=== PATIENT | male | born 1975 ===

== ENCOUNTER 2016-08-21 21:56 | Emergency (ER) | payer SELFPAY ==
[2016-08-21 22:08] VITALS: O2SAT 97
[2016-08-21] MEDS ORDERED: Sodium Chloride 0.9% 1,000 ML IV ONE (22:25)
[2016-08-21] MEDS ORDERED: Sodium Chloride 0.9% 1,000 ML ONE (22:39)
[2016-08-21 22:49] LABS: BASO # 0.1 K/uL (0.0-0.2); BASO % 1.3 % (0.0-2.0); EOS # 0.4 K/uL (0.0-0.7); EOS % 4.9 % (0.0-4.0); HEMOGLOBIN 13.4 g/dL (12.0-18.0); LYMPH # 2.4 K/uL (1.0-4.3); LYMPH % 29.4 % (20.0-40.0); MEAN CELL VOLUME 81.8 fL (80.0-94.0); MEAN CORPUSCULAR HEMOGLOBIN 27.9 pg (27.0-31.0); MEAN CORPUSCULAR HGB CONC 34.1 g/dL (33.0-37.0); MEAN PLATELET VOLUME 8.5 fL (7.2-11.7); MONO # 0.7 K/uL (0.0-0.8); MONO % 9.1 % (0.0-10.0); NEUT # 4.5 K/uL (1.8-7.0); NEUT % 55.3 % (50.0-75.0); RBC 4.79 Mil/uL (4.40-5.90); RED CELL DISTRIBUTION WIDTH 14.1 % (11.5-14.5); WHITE BLOOD COUNT 8.1 K/uL (4.8-10.8)
[2016-08-21 22:52] LABS: SQUAMOUS EPITHIAL < 1 /hpf (0-5); URINE BACTERIA RARE (<OCC); URINE BILIRUBIN NEGATIVE (NEGATIVE); URINE BLOOD TRACE (NEGATIVE); URINE CLARITY Clear (Clear); URINE COLOR Yellow (YELLOW); URINE GLUCOSE (UA) NORMAL (Normal); URINE LEUKOCYTE ESTERASE NEG Leu/uL (Negative); URINE NITRATE NEGATIVE (NEGATIVE); URINE PROTEIN NEGATIVE (NEGATIVE); URINE UROBILINOGEN NORMAL mg/dL (0.2-1.0)
[2016-08-21 23:02] LABS: GFR AFRICAN-AMERICAN > 60; GFR NON-AFRICAN AMERICAN > 60
[2016-08-21 23:03] LABS: ALB/GLOB RATIO 1.1 (1.0-2.1); ALT/SGPT 25 U/L (21-72); AST/SGOT 25 U/L (17-59); BLOOD UREA NITROGEN 13 mg/dL (9-20); CALCIUM 8.8 mg/dl (8.6-10.4); LIPASE 70 U/L (23-300)
--- NOTE | 2016-08-21 23:04 | C.PDOC ---
History Of Present Illness A 41 y/o M c/o epigastric pain since this morning. Denies nausea, vomiting, fever, chills, chest pain, SOB, lightheadedness, diaphoresis, or any other complaints. Pt took antacids this morning without improvements. Time Seen by Provider: 08/21/16 22:22 Chief Complaint (Nursing): Abdominal Pain History Per: Patient History/Exam Limitations: no limitations Onset/Duration Of Symptoms: Hrs Current Symptoms Are (Timing): Still Present Severity: Mild Location Of Pain/Discomfort: Epigastric Radiation Of Pain To:: None Quality Of Discomfort: "Pain" Associated Symptoms: denies: Fever, Chills, Nausea, Vomiting Exacerbating Factors: None Alleviating Factors: None Recent travel outside of the [place]: No Additional History Per: Patient Past Medical History Reviewed: Historical Data, Nursing Documentation, Vital Signs Vital Signs: Last Vital Signs Temp 98.1 F 08/21/16 22:06 Pulse 60 08/21/16 22:06 Resp 16 08/21/16 22:06 BP 132/87 08/21/16 22:06 Pulse Ox 97 08/21/16 23:07 Family History: States: Unknown Family Hx - Social History Hx Alcohol Use: No Hx Substance Use: No - Immunization History Hx Tetanus Toxoid Vaccination: No Hx Influenza Vaccination: No Hx Pneumococcal Vaccination: No Review Of Systems Except As Marked, All Systems Reviewed And Found Negative. Constitutional: Negative for: Fever, Chills, Sweats Cardiovascular: Negative for: Chest Pain, Light Headedness Respiratory: Negative for: Shortness of Breath Gastrointestinal: Positive for: Abdominal Pain (Epigastric). Negative for: Nausea, Vomiting Physical Exam - Physical Exam Appears: Non-toxic, No Acute Distress Skin: Warm, Dry Head: Atraumatic, Normacephalic Eye(s): bilateral: Normal Inspection Cardiovascular: Rhythm Regular Respiratory: Normal Breath Sounds, No Rales, No Rhonchi, No Wheezing Gastrointestinal/Abdominal: Soft, Tenderness (vague epigastric tenderness. (-) McBurney's sign, (-) [place]), No Guarding, No Rebound Neurological/Psych: Oriented x3, Normal Speech, Normal Cognition Gait: Steady ED Course And Treatment - Laboratory Results Result Diagrams: 08/21/16 22:46 08/21/16 22:46 Lab Interpretation: Normal (ua neg) O2 Sat by Pulse Oximetry: 97 (RA) Pulse Ox Interpretation: Normal - Radiology CXR: Interpreted by Me CXR Interpretation: Yes: No Acute Disease - Other Rad abd x 2 X-Ray: Interpreted by Me (+FOS) Medical Decision Making Medical Decision Making: Impression: A 41 y/o M c/o epigastric pain since this morning. Plans: -Blood labs -XRAY abdomen -Pepcid -Toradol -IV fluids constipated Disposition Doctor Will See Patient In The: Office Counseled Patient/Family Regarding: Studies Performed, Diagnosis - Disposition Disposition: HOME/ ROUTINE Disposition Time: 23:08 Condition: GOOD - Clinical Impression Clinical Impression: Abdominal pain - Scribe Statement The provider has reviewed the documentation as recorded by the Scribe Robin burgos All medical record entries made by the Torstenibe were at my direction and personally dictated by me. I have reviewed the chart and agree that the record accurately reflects my personal performance of the history, physical exam, medical decision making, and the department course for this patient. I have also personally directed, reviewed, and agree with the discharge instructions and disposition.
[2016-08-21 23:14] VITALS: BP 106/62; PULSE 72; RESP 20; TEMP 97.3
--- NOTE | 2016-08-22 07:55 | RAD ---
Abdomen four views History: Abdominal pain. Comparison: None available. Findings: Mild venous congestion. Right hilar and infrahilar prominence. Moderate fecal retention in the colon. Relative paucity of small bowel gas. Degenerative changes in the spine and hips. Impression: Nonspecific bowel gas pattern with moderate fecal retention in the colon. Relative paucity of small bowel gas.
== END 2016-08-21 23:27 | disposition home or self-care (01) ==
LOC: C.ER 21:56
DX: R10.13 Epigastric pain (principal)
CPT/HCPCS: 74022; 80053; 81001; 83690; 85025; 96374; 96375; 99284; J1885; J7040